=== PATIENT | female | born 1990 | race Caucasian/White ===

== ENCOUNTER 2016-06-20 22:50 | Emergency (ER) | payer OTHER ==
--- NOTE | 2016-06-21 01:45 | ED NURSING NOTES ---
Clinical Report - Nurses [facility] [address] [place] [address] 06/20/2016 22:50 Patient: AMANDA LO TRIAGE Triage time 23:Jun 20 2016. Acuity: LEVEL 4. Chief Complaint: PULLING LEFT EAR. JENNIFER COMA SCORE: [place] Coma Scale. (15). --23:03 Anup Santos R.N. 23:01 06/20/16. BP: 140/104. HR: 118. RR: 18. O2 saturation: 100%. Temp: 98.2 F. Pain level now 8/10. --23:03 Anup Santos R.N. Weight: 56.6 kg stated. Height/Length: 62 inches Per Patient. BMI: 22.8. --23:03 Anup Santos R.N. Medications None. --23:02 Anup Santos R.N. Allergies No Known Drug Allergy. --23:02 Anup Santos R.N. History Arrived by private vehicle. Historian: patient. ( Pt reports pain in L ear that started yesterday, no injury hx of ear infections. migraine MARIE). This started yesterday. SOCIAL HX: Never smoker. No alcohol use or drug use. --23:03 Anup Santos R.N. PROBLEMS: Chest Wall Pain. Fever. Abdominal Pain. URI. Otitis Externa. --23:02 Anup Santos R.N. Interventions ID band on patient. To treatment room. --23:03 Anup Santos R.N. PHYSICAL ASSESSMENT GENERAL / NEURO / PSYCH: Alert. Appears anxious. HEENT: No facial asymmetry noted. Pupils equal, round and reactive to light. Right ear within normal limits. CVS: Capillary refill less than 2 seconds. SKIN: Skin is warm and dry. --23:04 Anup Santos R.N. HEENT: Pain upon movement of the left auricle. Right ear within normal limits. --23:06 Anup Santos R.N. NURSING PROGRESS NOTES The plan of care for this patient has been created. Monitoring of patient in place. Head of bed elevated. Reassurance given. Two patient identifiers checked. Call light placed in reach. Bed placed in lowest position. Brakes of bed on. Patient ready for evaluation- chart flagged. --23:06 Anup Santos R.N. 00:31 06/21/2016 Hydrocodone-APAP (Hydrocodone-Acetaminophen) PO 5/325 mg Tablets 1 tab given. Allergies verified, confirmed 5 rights and sedative warning given to the patient. --00:31 Anup Santos R.N. 00:32 06/21/2016 Toradol (Ketorolac Tromethamine) IM 60 mg given. Given in the right deltoid and left deltoid (split dose). Allergies verified and confirmed 5 rights. --00:32 Anup Santos R.N. DISPOSITION / DISCHARGE Departure time: 0149. Condition at departure: unchanged. No learning barriers present. Discharge instructions provided and reviewed with the patient. Patient verbalized understanding. Written instructions provided in Nepali. The patient was discharged by the physician. She was discharged home and accompanied by farm machine tender. She left the Emergency Department ambulatory and via private vehicle. Mold Press Operator driving. --01:52 Stefan Selby R.N. 01:50 06/21/16. BP: 131/84. HR: 97. RR: 18. O2 saturation: 100%. Pain level now 10. --01:52 Stefan Selby R.N. Locked/Released at 06/21/2016 1:52 by Stefan Selby R.N.
--- NOTE | 2016-06-21 01:45 | ED ORDER SUMMARY ---
..... Patient: AMANDA LO OrderSheet [facility] VisitID: [id number] [address] [place] [address] 25y, F Registration Date/Time: 06/20/2016 ORDER SHEET Weight: 56.6 kg (stated) Allergies: No Known Drug Allergy GENERAL ORDERS: CT IAC/PF/Orbit wo Cont Urgent (00:28 06/21/2016 Maximo DIETZ) (Ack 0:30 Felix ER [place]) (0:56 RFay) MEDICATION ORDERS: Toradol IM 60 mg (NOW) (00:24 06/21/2016 Maximo DIETZ) (0:32 DBeyer R.N.) Hydrocodone-APAP PO 5/325 mg (NOW, HIGH ALERT MEDICATION) (00:25 06/21/2016 Maximo DIETZ) (0:31 DBeyer R.N.) IV FLUIDS: ORDER SHEET NOTES: [Electronically signed by Stefan Selby R.N. (01:52 06/21/2016)] [Electronically signed by Cecille Macdonald MD (22:07 06/25/2016)] [Electronically locked/signed by Stefan Selby R.N. (:52 06/21/2016)]
--- NOTE | 2016-06-21 01:45 | ED CLINICAL REPORT ---
Clinical Report - Physicians/Mid Levels [facility] [address] [place] [address] 06/20/2016 22:50 Patient: AMANDA LO Time Seen: 23:02. Arrived- By private vehicle. Historian- patient. HISTORY OF PRESENT ILLNESS Chief Complaint: Pain in and behind L ear. Modifying factors. Not worsened by anything. Not relieved by anything. This started today and is still present. The patient cannot recall the circumstances at the onset. Location- left ear. The pain is described as moderate. The patient has had ear pain. No ear drainage, hearing loss, nasal discharge or congestion or sinus pressure. No complaint of foreign body in the ear, ear trauma, recent barotrauma, tinnitus or sore throat. No toothache, jaw pain or facial pain. Similar symptoms previously: ( Pt does have a h/o otitis media as an adult.). Recent medical care: Not recently seen/assessed. REVIEW OF SYSTEMS No fever, chills, cough, difficulty breathing or chest pain. No headache, eye discomfort, nausea, vomiting or diarrhea. No abdominal pain, difficulty with urination, skin rash, enlarged lymph nodes or joint pain. Has not had decreased oral intake. Denies current . All systems otherwise negative, except as recorded above. PAST HISTORY Problems: Immunizations. LNMP - Last Normal Menstrual Period. Additional Surgeries: Tympanostomy Tubes. Medications: None. Allergies: No Known Drug Allergy. SOCIAL HISTORY Never smoker. No alcohol use or drug use. ADDITIONAL NOTES The nursing notes have been reviewed. PHYSICAL EXAM Vital Signs: 06/20/2016 23:01 BP: 140/104. HR: 118. RR: 18. O2 saturation: 100%. Temp: 98.2 F. Have been reviewed. Appearance: Alert. No acute distress. Eyes: Eyes normal inspection. Ear (right): Right tympanic membrane normal. Throat: Pharynx normal. Ear (left): There is dullness of the tympanic membrane. No erythema of the tympanic membrane, fluid behind the tympanic membrane, bulging of the tympanic membrane or perforation of the tympanic membrane. Does not have loss of tympanic membrane landmarks. Light reflex normal. Insufflation normal. There is moderate tenderness of the mastoid. Does not have swelling or erythema of the mastoid. Nose: Nose normal. Neck: Normal inspection. Neck supple. Respiratory: No respiratory distress. Back: Normal inspection. Skin: Skin warm and dry. Normal skin color. No rash. Normal skin turgor. Extremities: Extremities exhibit normal ROM. Neuro: Oriented X 3. No motor deficit. No sensory deficit. LABS, X-RAYS, AND EKG Pulse Oximetry: 06/20/2016 23:01 O2 saturation: 100%. (FIO2 - room air). Interpretation: normal. Note - Tests: (Noncontrast CT mastoids/IAC: No fluid in mastoid air cells. No brain lesion noted. Viewed/interpreted by ED physician and radiologist.). PROGRESS AND PROCEDURES Course of Care: Pt was given Toradol and Vicodin for her discomfort. Her L mastoid was quite tender, and I felt she should be imaged to evaluate for mastoiditis. This was done, and found to be negative. The exact cause of the pt's pain was unclear; however, no emergent condition was identified. Patient and friend counseled in person regarding the patient's stable condition, test results, diagnosis and need for follow-up. Concerns were addressed. Old medical records reviewed. Disposition: Discharged. Condition: stable and improved. CLINICAL IMPRESSION Acute left otalgia Clinical picture does not suggest mastoiditis. INSTRUCTIONS Drink plenty of fluids. (Your CT scan looks good.). Warnings: GENERAL WARNINGS: Return or contact your physician immediately if your condition worsens or changes unexpectedly, if not improving as expected, or if other problems arise. Follow-up: Follow up with your doctor in two weeks if not better. Understanding of the discharge instructions verbalized by patient. (Electronically signed by Cecille Macdonald MD 06/25/2016 22:07)
--- NOTE | 2016-06-21 01:45 | ED NURSING NOTES ---
Clinical Report - Nurses [facility] [address] [place] [address] 06/20/2016 22:50 Patient: AMANDA LO TRIAGE Triage time 23:Jun 20 2016. Acuity: LEVEL 4. Chief Complaint: PULLING LEFT EAR. JENNIFER COMA SCORE: [place] Coma Scale. (15). --23:03 Anup Santos R.N. 23:01 06/20/16. BP: 140/104. HR: 118. RR: 18. O2 saturation: 100%. Temp: 98.2 F. Pain level now 8/10. --23:03 Anup Santos R.N. Weight: 56.6 kg stated. Height/Length: 62 inches Per Patient. BMI: 22.8. --23:03 Anup Santos R.N. Medications None. --23:02 Anup Santos R.N. Allergies No Known Drug Allergy. --23:02 Anup Santos R.N. History Arrived by private vehicle. Historian: patient. ( Pt reports pain in L ear that started yesterday, no injury hx of ear infections. migraine MARIE). This started yesterday. SOCIAL HX: Never smoker. No alcohol use or drug use. --23:03 Anup Santos R.N. PROBLEMS: Chest Wall Pain. Fever. Abdominal Pain. URI. Otitis Externa. --23:02 Anup Santos R.N. Interventions ID band on patient. To treatment room. --23:03 Anup Santos R.N. PHYSICAL ASSESSMENT GENERAL / NEURO / PSYCH: Alert. Appears anxious. HEENT: No facial asymmetry noted. Pupils equal, round and reactive to light. Right ear within normal limits. CVS: Capillary refill less than 2 seconds. SKIN: Skin is warm and dry. --23:04 Anup Santos R.N. HEENT: Pain upon movement of the left auricle. Right ear within normal limits. --23:06 Anup Santos R.N. NURSING PROGRESS NOTES The plan of care for this patient has been created. Monitoring of patient in place. Head of bed elevated. Reassurance given. Two patient identifiers checked. Call light placed in reach. Bed placed in lowest position. Brakes of bed on. Patient ready for evaluation- chart flagged. --23:06 Anup Santos R.N. 00:31 06/21/2016 Hydrocodone-APAP (Hydrocodone-Acetaminophen) PO 5/325 mg Tablets 1 tab given. Allergies verified, confirmed 5 rights and sedative warning given to the patient. --00:31 Anup Santos R.N. 00:32 06/21/2016 Toradol (Ketorolac Tromethamine) IM 60 mg given. Given in the right deltoid and left deltoid (split dose). Allergies verified and confirmed 5 rights. --00:32 Anup Santos R.N. DISPOSITION / DISCHARGE Departure time: 0149. Condition at departure: unchanged. No learning barriers present. Discharge instructions provided and reviewed with the patient. Patient verbalized understanding. Written instructions provided in Syriac. The patient was discharged by the physician. She was discharged home and accompanied by marine underwriter. She left the Emergency Department ambulatory and via private vehicle. Test Grader driving. --01:52 Stefan Selby R.N. 01:50 06/21/16. BP: 131/84. HR: 97. RR: 18. O2 saturation: 100%. Pain level now 10. --01:52 Stefan Selby R.N. Locked/Released at 06/21/2016 1:52 by Stefan Selby R.N.
--- NOTE | 2016-06-21 01:45 | ED ORDER SUMMARY ---
..... Patient: AMANDA LO OrderSheet [facility] VisitID: [id number] [address] [place] [address] 25y, F Registration Date/Time: 06/20/2016 ORDER SHEET Weight: 56.6 kg (stated) Allergies: No Known Drug Allergy GENERAL ORDERS: CT IAC/PF/Orbit wo Cont Urgent (00:28 06/21/2016 Maximo DIETZ) (Ack 0:30 Felix ER Sash Finisher) (0:56 RFay) MEDICATION ORDERS: Toradol IM 60 mg (NOW) (00:24 06/21/2016 Maximo DIETZ) (0:32 DBeyer R.N.) Hydrocodone-APAP PO 5/325 mg (NOW, HIGH ALERT MEDICATION) (00:25 06/21/2016 Maximo DIETZ) (0:31 DBeyer R.N.) IV FLUIDS: ORDER SHEET NOTES: [Electronically signed by Stefan Selby R.N. (01:52 06/21/2016)] [Electronically signed by Cecille Macdonald MD (22:07 06/25/2016)] [Electronically locked/signed by Stefan Selby R.N. (:52 06/21/2016)]
--- NOTE | 2016-06-21 06:57 | DIAGNOSTIC IMAGING REPORT ---
PROCEDURE: CT IAC/PF/ORBIT W/OUT CONTRAST INDICATION: Left ear pain and tenderness. TECHNIQUE: Thin-cut noncontrast axial images with coronal reformations of bilateral temporal bones and mastoids. Preliminary report provided by Ingrid Seo MD ([facility]). COMPARISON: None. FINDINGS: RIGHT TEMPORAL BONES AND MASTOIDS: Right temporal bone and mastoid structures are normal including ossicles, inner ear, middle ear, internal and external auditory canals. There is a metal ear ring in the right auricle. LEFT TEMPORAL BONES AND MASTOIDS: Left temporal bone and mastoid structures are normal including ossicles, inner ear, middle ear, internal and external auditory canals. There is a 1.5 cm chronic retention cyst in the left maxillary sinus with a 0.7 cm chronic retention cyst in the right maxillary sinus. IMPRESSION: 1. Normal temporal bone mastoid structures. 2. 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 No evidence of acute process. 3. Findings discussed with Dr. Macdonald. All CT scans at this facility use dose modulation, iterative reconstruction, and/or weight-based dosing when appropriate to reduce radiation dose to as low as reasonably achievable.
--- NOTE | 2016-06-21 06:57 | DIAGNOSTIC IMAGING REPORT ---
PROCEDURE: CT IAC/PF/ORBIT W/OUT CONTRAST INDICATION: Left ear pain and tenderness. TECHNIQUE: Thin-cut noncontrast axial images with coronal reformations of bilateral temporal bones and mastoids. Preliminary report provided by Ingrid Seo MD ([facility]). COMPARISON: None. FINDINGS: RIGHT TEMPORAL BONES AND MASTOIDS: Right temporal bone and mastoid structures are normal including ossicles, inner ear, middle ear, internal and external auditory canals. There is a metal ear ring in the right auricle. LEFT TEMPORAL BONES AND MASTOIDS: Left temporal bone and mastoid structures are normal including ossicles, inner ear, middle ear, internal and external auditory canals. There is a 1.5 cm chronic retention cyst in the left maxillary sinus with a 0.7 cm chronic retention cyst in the right maxillary sinus. IMPRESSION: 1. Normal temporal bone mastoid structures. 2. 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 No evidence of acute process. 3. Findings discussed with Dr. Macdonald. All CT scans at this facility use dose modulation, iterative reconstruction, and/or weight-based dosing when appropriate to reduce radiation dose to as low as reasonably achievable.
--- NOTE | 2016-06-25 22:07 | ED MAR SUMMARY ---
..... Medication Administration Record [facility] [address] [place] [address] Patient: AMANDA LO Visit ID: [id number] 25y, F Weight: 56.6 kg Height/Length: 62 in BMI: 22.8 ALLERGIES: No Known Drug Allergy Given 00:31 06/21/2016 Anup Santos RLazaraNLazara Medication Administered: HYDROCODONE-APAP [PO] (HYDROCODONE-ACETAMINOPHEN), Dose: 1 tab 5/325 mg Tablets PO. Medication Ordered: Hydrocodone-APAP PO 5/325 mg (NOW, HIGH ALERT MEDICATION). Given 00:32 06/21/2016 Anup Santos, RLazaraN. Medication Administered: TORADOL [IM] (KETOROLAC TROMETHAMINE), Dose: 60 mg IM. Medication Ordered: Toradol IM 60 mg (NOW).
--- NOTE | 2016-06-25 22:07 | ED MED RECONCILIATION SUMMARY ---
Patient: AMANDA LO Medication Reconciliation Report [facility] VisitID: [id number] [address] [place] [address] 25y, F Registration Date/Time: 06/20/2016 Weight: 56.6 kg Height/Length: 62 in. BMI: 22.8 ALLERGIES: No Known Drug Allergy The patient's Home Medications are listed below: NONE. The source(s) of the original Home Medication information: Not obtained. The following Medications were given to the patient in the Emergency Department: Hydrocodone-APAP [PO] PO 1 tab, administered: 06/21/2016 12:31:00 AM Toradol [IM] IM 60 mg, administered: 06/21/2016 12:32:00 AM The following Medications were prescribed to the patient: None.
--- NOTE | 2016-06-25 22:07 | ED DISCHARGE INSTRUCTIONS ---
Patient: AMANDA LO General Instructions [facility] VisitID: [id number] [place] [address] 25y, F Registration Date/Time: 06/20/2016 Acute left otalgia INSTRUCTIONS Drink plenty of fluids. (Your CT scan looks good.). Warnings: GENERAL WARNINGS: Return or contact your physician immediately if your condition worsens or changes unexpectedly, if not improving as expected, or if other problems arise. Follow-up: Follow up with your doctor in two weeks if not better. Understanding of the discharge instructions verbalized by patient. ADDITIONAL INFORMATION Fluid In The Middle Ear, No Infection (Adult) Earaches can happen without an infection. This can occur when air and fluid build up behind the eardrum causing pain and reduced hearing. This is called when you have a cold if congestion blocks the passage that drains the middle ear (eustachian tube). It may also occur with nasal allergies, gastric acid reflux (GERD), or after a bacterial middle ear infection. The pain may come and go. You may hear clicking or popping sounds when chewing or swallowing. You may feel that your balance is off. Or you may hear ringing in the ear. It often takes from several weeks up to three months for the fluid to clear on its own. Oral pain relievers and ear drops help with pain. Decongestants and antihistamines sometimes help. This condition does not respond to antibiotics since there is no infection. Your doctor may prescribe a nasal spray to help reduce swelling in the nose and eustachian tube. This can allow the ear to drain. If there has been no improvement after three months, surgery may be used to drain the fluid and insert a small tube in the eardrum to permit continued drainage. Because the middle ear fluid can become infected, it is important to watch for signs of an ear infection which may develop later. These signs include ear pain, fever, or drainage from the ear. Home Care: You may use acetaminophen (Tylenol) or ibuprofen (Motrin, Advil) to control pain, unless another medicine was prescribed. [NOTE: If you have chronic liver or kidney disease or ever had a stomach ulcer or GI bleeding, talk with your doctor before using these medicines.] (Aspirin should never be used in anyone under 18 years of age who is ill with a fever. It may cause severe liver damage.) You may use rlim-jyk-jkebcag decongestants such as pseudoephedrine (Sudafed). You may use medications such as guaifenesin (Mucinex) to thin mucus and promote drainage. Follow Up with your doctor or as advised if you are not feeling better after three days. Get Prompt Medical Attention if any of the following occur: Ear pain gets worse or does not start to improve after three days of treatment Fever of 100.4F (38C) or higher, or as directed by your healthcare provider Fluid or blood draining from the ear Headache or sinus pain Stiff neck Unusual drowsiness or confusion You have been given the following additional information: Earache W/O Infection (Adult) (Electronically signed by Cecille Macdonald MD 06/25/2016 22:07)
--- NOTE | 2016-06-25 22:07 | ED MAR SUMMARY ---
..... Medication Administration Record [facility] [address] [place] [address] Patient: AMANDA LO Visit ID: [id number] 25y, F Weight: 56.6 kg Height/Length: 62 in BMI: 22.8 ALLERGIES: No Known Drug Allergy Given 00:31 06/21/2016 Anup Santos RLazaraNLazara Medication Administered: HYDROCODONE-APAP [PO] (HYDROCODONE-ACETAMINOPHEN), Dose: 1 tab 5/325 mg Tablets PO. Medication Ordered: Hydrocodone-APAP PO 5/325 mg (NOW, HIGH ALERT MEDICATION). Given 00:32 06/21/2016 Anup Santos, RLazaraN. Medication Administered: TORADOL [IM] (KETOROLAC TROMETHAMINE), Dose: 60 mg IM. Medication Ordered: Toradol IM 60 mg (NOW).
--- NOTE | 2016-06-25 22:07 | ED MED RECONCILIATION SUMMARY ---
Patient: AMANDA LO Medication Reconciliation Report [facility] VisitID: [id number] [address] [place] [address] 25y, F Registration Date/Time: 06/20/2016 Weight: 56.6 kg Height/Length: 62 in. BMI: 22.8 ALLERGIES: No Known Drug Allergy The patient's Home Medications are listed below: NONE. The source(s) of the original Home Medication information: Not obtained. The following Medications were given to the patient in the Emergency Department: Hydrocodone-APAP [PO] PO 1 tab, administered: 06/21/2016 12:31:00 AM Toradol [IM] IM 60 mg, administered: 06/21/2016 12:32:00 AM The following Medications were prescribed to the patient: None.
--- NOTE | 2016-06-25 22:07 | ED DISCHARGE INSTRUCTIONS ---
Patient: AMANDA LO General Instructions [facility] VisitID: [id number] [place] [address] 25y, F Registration Date/Time: 06/20/2016 Acute left otalgia INSTRUCTIONS Drink plenty of fluids. (Your CT scan looks good.). Warnings: GENERAL WARNINGS: Return or contact your physician immediately if your condition worsens or changes unexpectedly, if not improving as expected, or if other problems arise. Follow-up: Follow up with your doctor in two weeks if not better. Understanding of the discharge instructions verbalized by patient. ADDITIONAL INFORMATION Fluid In The Middle Ear, No Infection (Adult) Earaches can happen without an infection. This can occur when air and fluid build up behind the eardrum causing pain and reduced hearing. This is called when you have a cold if congestion blocks the passage that drains the middle ear (eustachian tube). It may also occur with nasal allergies, gastric acid reflux (GERD), or after a bacterial middle ear infection. The pain may come and go. You may hear clicking or popping sounds when chewing or swallowing. You may feel that your balance is off. Or you may hear ringing in the ear. It often takes from several weeks up to three months for the fluid to clear on its own. Oral pain relievers and ear drops help with pain. Decongestants and antihistamines sometimes help. This condition does not respond to antibiotics since there is no infection. Your doctor may prescribe a nasal spray to help reduce swelling in the nose and eustachian tube. This can allow the ear to drain. If there has been no improvement after three months, surgery may be used to drain the fluid and insert a small tube in the eardrum to permit continued drainage. Because the middle ear fluid can become infected, it is important to watch for signs of an ear infection which may develop later. These signs include ear pain, fever, or drainage from the ear. Home Care: You may use acetaminophen (Tylenol) or ibuprofen (Motrin, Advil) to control pain, unless another medicine was prescribed. [NOTE: If you have chronic liver or kidney disease or ever had a stomach ulcer or GI bleeding, talk with your doctor before using these medicines.] (Aspirin should never be used in anyone under 18 years of age who is ill with a fever. It may cause severe liver damage.) You may use hfae-tan-vbysqug decongestants such as pseudoephedrine (Sudafed). You may use medications such as guaifenesin (Mucinex) to thin mucus and promote drainage. Follow Up with your doctor or as advised if you are not feeling better after three days. Get Prompt Medical Attention if any of the following occur: Ear pain gets worse or does not start to improve after three days of treatment Fever of 100.4F (38C) or higher, or as directed by your healthcare provider Fluid or blood draining from the ear Headache or sinus pain Stiff neck Unusual drowsiness or confusion You have been given the following additional information: Earache W/O Infection (Adult) (Electronically signed by Cecille Macdonald MD 06/25/2016 22:07)
== END 2016-06-21 01:49 | disposition home or self-care (01) ==
LOC: ED SRH 22:50
DX: H92.02 Otalgia, left ear (principal)